=== PATIENT | male | born 1990 | race Caucasian/White ===

== ENCOUNTER 2016-11-03 10:54 | Emergency (ER) | payer SELFPAY ==
[~2016-11-03] VITALS: Ht 188 cm; Wt 79.5 kg
[2016-11-03 10:56] VITALS: BP 126/72; PULSE 15; PULSE 78; RESP 14; TEMP 98.1; O2SAT 98
--- NOTE | 2016-11-03 11:10 | PD ---
Physical Exam Time Seen by Provider: 11:08 Narrative 26yo M c/o laceration to L upper back from yesterday. Up to date on Tetanus. Denies fever, vomiting. Patient stable. Patient seen in triage. Awaiting bed placement. Data Data Last Documented VS Vital Signs Date Time Temp Pulse Resp B/P Pulse Ox O2 Delivery O2 Flow Rate FiO2 11/03/16 10:56 98.1 78 14 126/72 98 Nasal Cannula MDM Supervised Visit with SAMIRA: Marzena Carney Nov 03, 2016 11:10
--- NOTE | 2016-11-03 12:12 | PD ---
HPI . Left upper back laceration since yesterday Chief Complaint: Laceration/Skin Injury Time Seen by Provider: 12:11 Travel History International Travel<30 days: No Contact w/Intl Traveler<30days: No Traveled to known affect area: No History of Present Illness HPI 26 yr old male visiting from [place] here with complaints of left upper back laceration he sustained yesterday. Patient was intoxicated and decided to climb over a fence of [employer] He somehow did not step properly and cut himself on the fencing. He now has a laceration to his upper left back. Somehow yesterday he bumped into a anatomic pathology assistant, flushed the wound and put a clean dressing over it. He did not perform any type of wound care prior to coming here to the emergency department. Patient is complaining of pain in the laceration area. He denies any head injury or other injuries. He is accompanied by his friend. PFSH Past Medical History Medical History: Denies Significant Hx Social History Alcohol Use: Yes Tobacco Use: No Substance Use: No Allergies-Medications (Allergen,Severity, Reaction): Coded Allergies: No Known Allergies (Unverified , 11/03/16) Reported Meds & Prescriptions Reported Meds & Active Scripts Active Bactrim DS (Sulfamethoxazole-Trimethoprim) 800-160 Mg Tab 1 Tab PO BID Review of Systems General / Constitutional: No: Fever Eyes: No: Visual changes HENT: No: Headaches Cardiovascular: No: Chest Pain or Discomfort Respiratory: No: Shortness of Breath Gastrointestinal: No: Abdominal Pain Genitourinary: No: Dysuria Musculoskeletal: No: Pain Skin: Positive Other (laceration to the left upper back), No Rash Neurologic: No: Weakness Psychiatric: No: Depression Endocrine: No: Polydipsia Hematologic/Lymphatic: No: Easy Bruising Physical Exam Narrative GENERAL: AAO x 3, no acute distress, Well-nourished, well-developed patient. SKIN: Warm and dry. No visible rashes or bruising. 5 cm laceration to the left upper back. No visible muscle or vessel injury. Margins are ecchymotic, but clean. NO fb identified. HEAD: Normocephalic and atraumatic. EYES: No scleral icterus. No injection or drainage. ENT: No nasal drainage noted. Mucous membranes pink. Airway patent. NECK: Supple, trachea midline. No JVD. CARDIOVASCULAR: Regular rate and rhythm without murmurs, gallops, or rubs. RESPIRATORY: Breath sounds equal bilaterally. No accessory muscle use. No rhonchi or rales. GASTROINTESTINAL: Abdomen soft, non-tender, nondistended. EXTREMITIES: No cyanosis or edema. BACK: Nontender without obvious deformity. No CVA tenderness. PSYCH: AAO x 3, normal affect. Data Data Last Documented VS Vital Signs Date Time Temp Pulse Resp B/P Pulse Ox O2 Delivery O2 Flow Rate FiO2 11/03/16 10:56 98.1 78 14 126/72 98 Nasal Cannula Orders Lidocaine 1% Inj (50 Ml) (Xylocaine 1% I (11/03/16 12:30) Tetanus/Diphtheria Tox Adult (Tetanus/Di (11/03/16 13:00) MDM Medical Decision Making Medical Screen Exam Complete: Yes Emergency Medical Condition: Yes Medical Record Reviewed: Yes Differential Diagnosis 26 yr old male visiting from [place] here with complaints of left upper back laceration he sustained yesterday. Patient was intoxicated and decided to climb over a fence of [employer] He somehow did not step properly and cut himself on the fencing. He now has a laceration to his upper left back. Somehow yesterday he bumped into a anatomic pathology assistant, flushed the wound and put a clean dressing over it. He did not perform any type of wound care prior to coming here to the emergency department. Patient is complaining of pain in the laceration area. He denies any head injury or other injuries. He is accompanied by his friend. Patient seen and examined. He has a large 5 cm laceration to the left upper back. We discussed repair. He is terrified of needles and initially did not want repair. I discussed that the wound was rather large and needs some type of intervention. We opted for lucio. Patient tolerated without incident. 10 lucio were applied to the left upper back. Tetanus vaccine was administered. I advised him to clean with soap and water daily. Advised that he will need to have these removed in 10 days. Patient will have this done in [place]. Will cover him with antibiotics since this occurred yesterday and it was dirty fencing. Patient verbalized understanding of instructions, questions were answered, and thanked me for their care. I advised them if their condition worsens, please return to the nearest emergency room for further care. Narrative Course left upper back Procedures Procedure Narrative LACERATION LOCATION: Left upper back LENGTH: 5 cm NUMBER OF STITCHES/LUCIO: 10 [place] REPAIR: The area of the laceration was prepped with Betadine and sterilely draped. The laceration was infiltrated with 1% lidocaine. The wound was copiously irrigated and explored without evidence of foreign body, tendon injury or neurovascular injury, irrimax was used. The wound was closed using lucio. This was a single layer repair. A sterile dressing was applied. The patient was advised to keep the dressing clean and dry. Patient tolerated the procedure well. We discussed cleaning area with soap and water. Discussed removal of lucio in 10 days. Diagnosis Primary Impression: Laceration of back Qualified Code: S21.212A - Laceration of back, left, initial encounter Patient Instructions: Acute Wound Care (ED), General Instructions, Laceration ( ED) Additional Instructions: Keep area clean and dry. Use gauze as we discussed and change 1-2 times a day. Watch for signs of infection: fever, redness, swelling, warmth, pus or drainage , red streaks around the cut, and increased pain from the area. If any of these develop, return to the emergency department If you received a tetanus shot, you may experience tenderness at the injection site. This is normal. These lucio will need to be removed in about 10 days. You can return to the emergency department to have them removed. Take antibiotics as prescribed. The area will scar as we discussed. This is normal. You can try Mederma ( topical cream) after the area is healed to help reduce the scarring. Med/Other Pt SpecificInfo: Prescription(s) given Scripts Sulfamethoxazole-Trimethoprim (Bactrim DS)800-160 Mg Tab1 Tab PO BID #20 TAB Prov:Chano Givens MD 11/03/16 Disposition: 01 DISCHARGE HOME Condition: Stable Myrtle Vogel Nov 03, 2016 12:12
[2016-11-03] MEDS ORDERED: LIDOCAINE HCL 1% 50 ML VIAL INFIL ONE (12:30)
[2016-11-03] MEDS ORDERED: TETANUS/DIPHTHERIA TOXOID ADULT 0.5 ML VIAL IM ONE (13:00)
[2016-11-03] MEDS ORDERED: BACT800T5 PO (13:22)
== END 2016-11-03 14:01 | disposition home or self-care (01) ==
LOC: NEPK 10:54
DX: S21.212A Laceration without foreign body of left back wall of thorax without penetration into thoracic cavity, initial encounter (principal); W27.8XXA Contact with other nonpowered hand tool, initial encounter; Y93.89 Activity, other specified; Y92.831 Amusement park as the place of occurrence of the external cause
CPT/HCPCS: 12002; 90471; 90714